=== PATIENT | female | born 1950 | race Caucasian/White ===

== ENCOUNTER 2018-04-11 13:47 | Inpatient (IN) | payer BC, OTHER ==
[~2018-04-11] VITALS: Ht 170.2 cm; Wt 77.2 kg
[~2018-04-11 13:47] MED LIST: ACIPHEX; ACIPHEX20 MG PO; ACUPRIL; ALBUTEROL17 G1 IH; ASPIRIN E.C.81 M1 PO; AUGMENTIN875 MG PO; B12; CATAPRES; CATAPRES0.1 MG PO; FIORINAL; FIORINAL 50-321 EACH PO; FOLIC ACID; LITHIUM; LITHIUM CARBON300 MG PO; MIRALAX17 GM PO; NAPROSYN500 MG PO; NAPROXEN; NAPROXEN500 M2 PO; NEURONTIN; NEURONTIN300 MG PO; POTASSIUM; Phenergan PO; SOMA; SOMA350 MG PO; SPIRIVA1 INHALATI IH; SYNTHROID125 MCG PO; TOPROL; TOPROL XL25 MG PO; TRAMADOL HCL50 MG PO; ULTRAM; VAGIFEM25 MCG PO; VENTOLIN HFA18 GM IH
[2018-04-11 14:10] LABS: BASOPHIL (%) 0.6 % (0-1); BASOPHIL COUNT 0.1 K/uL (0-0.1); EOSINOPHIL (%) 1.4 % (0-5); EOSINOPHIL COUNT 0.1 K/uL (0-0.3); HEMATOCRIT 42.2 % (36.0-46.0); HEMOGLOBIN 14.2 G/DL (11.9-15.5); IMMATURE GRANULOCYTE (%) 0.4 % (0.0-0.7); LYMPHOCYTE (%) 19.4 % (15-42); LYMPHOCYTE COUNT 1.6 K/uL (1.0-2.8); MCH 31.7 PG (29.0-34.0); MCHC 33.6 G/DL (30.0-36.0); MCV 94.2 FL (83-99); MONOCYTE (%) 2.8 % (3-12); MONOCYTE COUNT 0.2 K/uL (0-0.8); NEUTROPHIL (%) 75.4 % (45-76); NEUTROPHIL COUNT 6.3 K/uL (1.8-6.4); PLATELET COUNT 228 K/uL (156-360); RBC DIS.WIDTH-CV 13.7 % (11.8-14.6); RBC DIS.WIDTH-SD 47.1 % (39-53); RED BLOOD COUNT 4.48 M/uL (3.80-5.20); WHITE BLOOD COUNT 8.3 K/uL (4.1-10.2)
[2018-04-11 14:16] LABS: INTER. NORMALIZED RATIO 1.1
[2018-04-11 14:19] LABS: PTT 29.4 SEC (25-37)
[2018-04-11 14:20] LABS: AMYLASE 86 IU/L (1-118); CHLORIDE 111 mEq/L (99-109); POTASSIUM 4.2 mEq/L (3.7-5.4); SODIUM 137 mEq/L (136-147)
[2018-04-11 14:22] LABS: GLUCOSE 135 mg/dL (70-99)
[2018-04-11 14:25] LABS: CREATININE 1.5 mg/dL (0.6-1.3); GFR ESTIMATE (CALCULATED) 37 mL/min/; SERUM ETHYL ALCOHOL < 10 mg/dL
[2018-04-11 14:26] LABS: UREA NITROGEN (BUN) 13 mg/dL (9-23)
[2018-04-11 14:28] LABS: LIPASE 22 U/L (1.0-51.0)
[2018-04-11 14:31] LABS: TROP-I INTERPRETATION NEGATIVE; TROPONIN-I < 0.01 ng/mL (0.0-0.30)
[2018-04-11] MEDS ORDERED: SOMA350 MG PO (16:11)
[2018-04-11] MEDS ORDERED: CYANOCOBALAM1000 MCG PO (16:14)
[2018-04-11] MEDS ORDERED: ZOLOFT50 MG PO (16:14)
[2018-04-11] MEDS ORDERED: SYSTANE 0.3-0.1 EACH BOTH EYES (16:15)
[2018-04-11] MEDS ORDERED: MIRALAX119 GM PO (16:15)
[2018-04-11 17:33] VITALS: BP 192/89
[2018-04-11 19:21] VITALS: BP 187/94
[2018-04-11 19:41] LABS: TROP-I INTERPRETATION NEGATIVE; TROPONIN-I < 0.01 ng/mL (0.0-0.30)
[2018-04-11 23:56] VITALS: BP 150/77
[2018-04-12 00:55] LABS: TROP-I INTERPRETATION NEGATIVE; TROPONIN-I 0.02 ng/mL (0.0-0.30)
[2018-04-12 04:09] VITALS: BP 121/60
[2018-04-12 06:11] LABS: HEMATOCRIT 37.1 % (36.0-46.0); MCH 31.5 PG (29.0-34.0); MCHC 32.6 G/DL (30.0-36.0); MCV 96.6 FL (83-99); PLATELET COUNT 204 K/uL (156-360); RBC DIS.WIDTH-CV 13.8 % (11.8-14.6); RBC DIS.WIDTH-SD 49.4 % (39-53); RED BLOOD COUNT 3.84 M/uL (3.80-5.20); WHITE BLOOD COUNT 10.4 K/uL (4.1-10.2)
[2018-04-12 06:13] LABS: HEMOGLOBIN 12.1 G/DL (11.9-15.5)
[2018-04-12 06:16] LABS: CHLORIDE 111 MEQ/L (99-109); CREATININE 1.5 MG/DL (0.6-1.3); GFR ESTIMATE (CALCULATED) 37 mL/min/; GLUCOSE 112 mg/dL (70-99); HDL CHOLESTEROL 29 MG/DL (Desirable>=50); LDL CHOLESTEROL 227 mg/dL (Desirable<100); NON-HDL CHOLESTEROL 279 mg/dL (Desirable<160); SODIUM 138 MEQ/L (136-147); TOTAL CHOLESTEROL 308 mg/dL (Desirable<200); TRIGLYCERIDES 258 MG/DL (Normal: <150); UREA NITROGEN (BUN) 15 mg/dL (9-23)
[2018-04-12 07:59] VITALS: BP 139/68
[2018-04-12 09:08] LABS: HEMOGLOBIN A1c (GLYCOHEMOGLOB) 5.2 % (Below 5.7)
[2018-04-12 12:27] VITALS: BP 143/75
[2018-04-12 15:15] LABS: CSF PROTEIN 140 mg/dL (15-45)
[2018-04-12 15:20] LABS: GLUCOSE, CSF 73 mg/dL (40-80)
[2018-04-12 16:11] VITALS: BP 186/81
[2018-04-12 17:21] LABS: APPEARANCE CLEAR/COLORLESS; CSF TUBE NUMBER TUBE #3
[2018-04-12 17:32] LABS: RED CELL COUNT 13 /MM^3 (0-1); WHITE CELL COUNT 1 /MM^3 (0-5)
[2018-04-12 17:58] LABS: CSF EOSINOPHILS 0 % (0-25); MONONUCLEAR WBC'S 98 % (50-90); POLYNUCLEAR WBC'S 2 % (0-3)
[2018-04-12 18:00] LABS: APPEARANCE (RECHECK) CLEAR/COLORLESS; CSF TUBE NUMBER (RECHECK) TUBE #1; RED CELL COUNT (RECHECK) 9 /MM^3 (0-1)
[2018-04-12 19:21] VITALS: BP 123/58
[2018-04-12 23:44] VITALS: BP 136/74
[2018-04-13 05:38] LABS: BASOPHIL (%) 0.5 % (0-1); EOSINOPHIL COUNT 0.4 K/uL (0-0.3); HEMATOCRIT 35.7 % (36.0-46.0); HEMOGLOBIN 11.2 G/DL (11.9-15.5); IMMATURE GRANULOCYTE (%) 0.4 % (0.0-0.7); LYMPHOCYTE COUNT 2.1 K/uL (1.0-2.8); MCHC 31.4 G/DL (30.0-36.0); MCV 98.9 FL (83-99); MONOCYTE (%) 5.7 % (3-12); MONOCYTE COUNT 0.5 K/uL (0-0.8); NEUTROPHIL (%) 62.4 % (45-76); NEUTROPHIL COUNT 5.1 K/uL (1.8-6.4); PLATELET COUNT 184 K/uL (156-360); RBC DIS.WIDTH-CV 14.1 % (11.8-14.6); RBC DIS.WIDTH-SD 51.8 % (39-53); RED BLOOD COUNT 3.61 M/uL (3.80-5.20); WHITE BLOOD COUNT 8.2 K/uL (4.1-10.2)
[2018-04-13 05:57] LABS: CHLORIDE 116 MEQ/L (99-109); CREATININE 1.6 MG/DL (0.6-1.3); GFR ESTIMATE (CALCULATED) 34 mL/min/; GLUCOSE 101 mg/dL (70-99); POTASSIUM 4.5 MEQ/L (3.7-5.4); SODIUM 144 MEQ/L (136-147); UREA NITROGEN (BUN) 14 mg/dL (9-23)
[2018-04-13 07:39] VITALS: BP 147/69
[2018-04-13 12:01] VITALS: BP 125/61
[2018-04-13 16:02] VITALS: BP 135/63
[2018-04-13 19:47] VITALS: BP 158/68
[2018-04-13 21:02] LABS: HSV CSF Spec Source CSF (())
[2018-04-14 00:14] VITALS: BP 155/77
[2018-04-14 03:35] VITALS: BP 157/64
[2018-04-14 06:18] LABS: CHLORIDE 113 MEQ/L (99-109); CREATININE 1.7 MG/DL (0.6-1.3); GFR ESTIMATE (CALCULATED) 32 mL/min/; GLUCOSE 97 mg/dL (70-99); POTASSIUM 4.3 MEQ/L (3.7-5.4); SODIUM 142 MEQ/L (136-147); UREA NITROGEN (BUN) 13 mg/dL (9-23)
[2018-04-14 07:46] VITALS: BP 141/70
[2018-04-14 12:37] VITALS: BP 137/67
[2018-04-14 14:04] LABS: BASOPHIL (%) 0.4 % (0-1); EOSINOPHIL (%) 7.4 % (0-5); EOSINOPHIL COUNT 0.6 K/uL (0-0.3); HEMATOCRIT 36.4 % (36.0-46.0); HEMOGLOBIN 11.4 G/DL (11.9-15.5); IMMATURE GRANULOCYTE (%) 0.2 % (0.0-0.7); LYMPHOCYTE (%) 24.7 % (15-42); MCHC 31.3 G/DL (30.0-36.0); MCV 98.9 FL (83-99); MONOCYTE (%) 5.7 % (3-12); MONOCYTE COUNT 0.5 K/uL (0-0.8); NEUTROPHIL (%) 61.6 % (45-76); NEUTROPHIL COUNT 5.1 K/uL (1.8-6.4); PLATELET COUNT 187 K/uL (156-360); RBC DIS.WIDTH-CV 13.9 % (11.8-14.6); RBC DIS.WIDTH-SD 51.4 % (39-53); RED BLOOD COUNT 3.68 M/uL (3.80-5.20); WHITE BLOOD COUNT 8.3 K/uL (4.1-10.2)
[2018-04-14 16:09] VITALS: BP 133/74
[2018-04-14 20:00] VITALS: BP 141/63
[2018-04-14 21:57] LABS: APPEARANCE CLEAR ((CLEAR)); BILIRUBIN NEGATIVE; BLOOD NEGATIVE; COLOR STRAW ((YELLOW)); GLUCOSE (STRIP) NEGATIVE; KETONES NEGATIVE; LEUKOCYTES NEGATIVE; NITRITE NEGATIVE; PROTEIN (STRIP) NEGATIVE; SPECIFIC GRAVITY 1.006 (1.000-1.030); UROBILINOGEN 0.2 MG/DL (0.2-1.0)
[2018-04-14 22:46] LABS: UR CREATININE CONCENTRATION 52.4 MG/DL
[2018-04-15 00:06] VITALS: BP 1749/85
[2018-04-15 04:00] VITALS: BP 146/70
[2018-04-15 06:34] LABS: CHLORIDE 115 MEQ/L (99-109); CREATININE 1.5 MG/DL (0.6-1.3); GFR ESTIMATE (CALCULATED) 36 mL/min/; GLUCOSE 102 mg/dL (70-99); POTASSIUM 4.1 MEQ/L (3.7-5.4); SODIUM 144 MEQ/L (136-147); UREA NITROGEN (BUN) 10 mg/dL (9-23)
[2018-04-15 08:03] VITALS: BP 163/73
[2018-04-15 12:06] VITALS: BP 179/79
[2018-04-15 15:13] VITALS: BP 139/72
[2018-04-15 23:43] VITALS: BP 134/72
[2018-04-16 06:53] LABS: BASOPHIL (%) 0.6 % (0-1); BASOPHIL COUNT 0.1 K/uL (0-0.1); EOSINOPHIL (%) 6.4 % (0-5); EOSINOPHIL COUNT 0.5 K/uL (0-0.3); HEMATOCRIT 33.1 % (36.0-46.0); HEMOGLOBIN 10.4 G/DL (11.9-15.5); IMMATURE GRANULOCYTE (%) 0.3 % (0.0-0.7); LYMPHOCYTE (%) 25.4 % (15-42); MCHC 31.4 G/DL (30.0-36.0); MCV 98.5 FL (83-99); MONOCYTE (%) 5.6 % (3-12); MONOCYTE COUNT 0.4 K/uL (0-0.8); NEUTROPHIL (%) 61.7 % (45-76); NEUTROPHIL COUNT 4.8 K/uL (1.8-6.4); PLATELET COUNT 189 K/uL (156-360); RBC DIS.WIDTH-CV 13.7 % (11.8-14.6); RBC DIS.WIDTH-SD 49.1 % (39-53); RED BLOOD COUNT 3.36 M/uL (3.80-5.20); WHITE BLOOD COUNT 7.8 K/uL (4.1-10.2)
[2018-04-16 07:12] LABS: CHLORIDE 116 MEQ/L (99-109); CREATININE 1.5 MG/DL (0.6-1.3); GFR ESTIMATE (CALCULATED) 36 mL/min/; GLUCOSE 101 mg/dL (70-99); POTASSIUM 4.1 MEQ/L (3.7-5.4); SODIUM 148 MEQ/L (136-147); UREA NITROGEN (BUN) 8 mg/dL (9-23)
[2018-04-16 07:19] VITALS: BP 151/76
[2018-04-16 15:16] VITALS: BP 166/74
[2018-04-16 23:44] VITALS: BP 129/61
[2018-04-17 05:54] LABS: CHLORIDE 114 MEQ/L (99-109); CREATININE 1.4 MG/DL (0.6-1.3); GFR ESTIMATE (CALCULATED) 40 mL/min/; GLUCOSE 113 mg/dL (70-99); SODIUM 145 MEQ/L (136-147); UREA NITROGEN (BUN) 9 mg/dL (9-23)
[2018-04-17 07:39] VITALS: BP 151/68
[2018-04-17 15:24] VITALS: BP 154/79
[2018-04-17 23:36] VITALS: BP 117/60
[2018-04-18 05:51] LABS: BASOPHIL (%) 0.5 % (0-1); EOSINOPHIL (%) 5.2 % (0-5); EOSINOPHIL COUNT 0.4 K/uL (0-0.3); HEMATOCRIT 30.1 % (36.0-46.0); HEMOGLOBIN 9.4 G/DL (11.9-15.5); IMMATURE GRANULOCYTE (%) 0.3 % (0.0-0.7); LYMPHOCYTE (%) 24.4 % (15-42); LYMPHOCYTE COUNT 1.8 K/uL (1.0-2.8); MCH 30.7 PG (29.0-34.0); MCHC 31.2 G/DL (30.0-36.0); MCV 98.4 FL (83-99); MONOCYTE COUNT 0.6 K/uL (0-0.8); NEUTROPHIL (%) 61.6 % (45-76); NEUTROPHIL COUNT 4.6 K/uL (1.8-6.4); PLATELET COUNT 175 K/uL (156-360); RBC DIS.WIDTH-CV 13.6 % (11.8-14.6); RBC DIS.WIDTH-SD 49.1 % (39-53); RED BLOOD COUNT 3.06 M/uL (3.80-5.20); WHITE BLOOD COUNT 7.5 K/uL (4.1-10.2)
[2018-04-18 06:17] LABS: ALBUMIN 3.5 G/DL (3.2-4.8); ALKALINE PHOSPHATASE 90 IU/L (3-129); ALT (GPT) 10 IU/L (3-49); AST (GOT) 10 IU/L (2-34); CHLORIDE 112 MEQ/L (99-109); CREATININE 1.4 MG/DL (0.6-1.3); GFR ESTIMATE (CALCULATED) 40 mL/min/; GLUCOSE 104 mg/dL (70-99); POTASSIUM 3.8 MEQ/L (3.7-5.4); SODIUM 145 MEQ/L (136-147); TOTAL BILIRUBIN 0.3 MG/DL (0.0-1.0); TOTAL PROTEIN 5.5 G/DL (6.4-8.3); UREA NITROGEN (BUN) 9 mg/dL (9-23)
[2018-04-18 07:46] VITALS: BP 121/59
[2018-04-18 09:27] LABS: URIC ACID 5.6 mg/dL (3.1-9.2)
[2018-04-18 10:24] LABS: INTACT PARATHYROID HORMONE 135 pg/mL (10-69)
== END 2018-04-18 12:12 | disposition home or self-care (01) | DRG 98 ==
LOC: EME 13:47 → EDOF 15:13 → 5SOUTH 15:51 → ENRESERV 16:08 → 5SOUTH 17:21
PROVIDERS: Family Medicine; Hospitalist; Internal Medicine; Internal Medicine Nephrology; Psychiatry & Neurology Neurology; Student in an Organized Health Care Education/Training Program
DX: G03.9 Meningitis, unspecified (principal); N17.9 Acute kidney failure, unspecified; E87.2 Acidosis; E86.0 Dehydration; E87.0 Hyperosmolality and hypernatremia; I12.9 Hypertensive chronic kidney disease with stage 1 through stage 4 chronic kidney disease, or unspecified chronic kidney disease; N18.3 Chronic kidney disease, stage 3 (moderate); K21.9 Gastro-esophageal reflux disease without esophagitis; M79.7 Fibromyalgia; J43.9 Emphysema, unspecified; F31.9 Bipolar disorder, unspecified; F17.200 Nicotine dependence, unspecified, uncomplicated; E78.5 Hyperlipidemia, unspecified; E03.9 Hypothyroidism, unspecified; T43.595A Adverse effect of other antipsychotics and neuroleptics, initial encounter; Y92.89 Other specified places as the place of occurrence of the external cause; Z79.02 Long term (current) use of antithrombotics/antiplatelets; Z82.3 Family history of stroke; Z90.710 Acquired absence of both cervix and uterus
CPT/HCPCS: 62270; 70450; 70486; 70551; 76770; 77003; 80048; 80053; 80061; 80178; 81003; 82150; 82306; 82570; 82945; 82948; 83036; 83605; 83690; 83970; 84156; 84157; 84484; 84550; 85025; 85027; 85610; 85730; 86850; 86900; 86901; 87040; 87070; 87205; 87529 90; 89051; 92523 GN; 93005; 93306; 93880; 94640; 94640 76; 99202; 99281; 99285; G0480; J0360; J0696; J1644; J2405; J3370; J7030; J7120